=== PATIENT | male | born 1990 | race Two or more races ===

== ENCOUNTER → 2016-08-23 | Outpatient (REF) | payer OTHER | LOC: M SFHCLERA 18:34 | PROVIDERS: ATTEND Physician Assistant | DX: N50.812 Left testicular pain (principal) ==

== ENCOUNTER → 2016-08-23 | Outpatient (CLI) | payer OTHER ==
--- NOTE | 2016-08-23 17:34 | REP ---
Clinical: Left-sided scrotal/testicular pain. Technique: Real time juarez scale and color Doppler evaluation using linear high frequency transducer. Findings: The bilateral testicles are normal in contour, size, echogenicity, and vascularity without evidence for intratesticular mass lesion, infectious/inflammatory process, or torsion. Left epididymis appears mildly hyperemic suggesting early epididymitis. No hydroceles. No varicoceles. Right testicle measures 4.3 x 2.5 x 3.4 cm. Left testicle measures 4.7 x 2.5 x 3.0 cm. Impression: Early left epididymitis suggested. Normal bilateral testicles. Signed by Tristin Jacobs MD 08/23/2016 05:25 P
== END ==
LOC: M RAD 16:47
PROVIDERS: ATTEND Physician Assistant
DX: N50.812 Left testicular pain (principal)

== ENCOUNTER → 2016-09-29 | Outpatient (REF) | payer OTHER | LOC: M SFHCLERA 13:54 | PROVIDERS: ATTEND Nurse Practitioner Family | DX: J06.9 Acute upper respiratory infection, unspecified (principal) ==

== ENCOUNTER → 2017-11-17 | Outpatient (REF) | payer OTHER ==
[2017-11-17 21:13] LABS: CHLAMYDIA DNA AMPLIFICATION NEGATIVE (NEGATIVE); GC DNA AMPLIFICATION NEGATIVE (NEGATIVE)
== END ==
LOC: M SFHCLERA 16:20
DX: Z86.19 Personal history of other infectious and parasitic diseases (principal); [UNRECOGNIZED DIAGNOSIS CODE]

== ENCOUNTER 2018-03-22 07:03 | Emergency (ER) | payer OTHER | END 2018-03-22 08:27 | disposition home or self-care (01) | LOC: M ED 07:03 | DX: S93.401A Sprain of unspecified ligament of right ankle, initial encounter (principal); X50.9XXA Other and unspecified overexertion or strenuous movements or postures, initial encounter; Y92.89 Other specified places as the place of occurrence of the external cause; F33.9 Major depressive disorder, recurrent, unspecified | CPT/HCPCS: 73610 ==

== ENCOUNTER → 2019-08-16 | Outpatient (REF) | payer OTHER ==
[~2019-08-16] MED LIST: NAPR-837 PO
[2019-08-16 14:15] LABS: ALBUMIN 4.3 GM/DL (3.2-5.2); ALT/SGPT 32 U/L (12-78); BILIRUBIN,TOTAL 0.7 MG/DL (0.2-1.0); BLOOD UREA NITROGEN 16 MG/DL (7-18); CALCIUM LEVEL 9.2 MG/DL (8.5-10.1); CARBON DIOXIDE LEVEL 30 MEQ/L (21-32); CHLORIDE LEVEL 103 MEQ/L (98-107); CHOLESTEROL LEVEL 213 MG/DL (<200); CHOLESTEROL RISK RATIO 4.096 (<5); CREATININE FOR GFR 0.93 MG/DL (0.70-1.30); FREE T4 1.02 NG/DL (0.76-1.46); GLOMERULAR FILTRATION RATE > 60.0 (>60); GLUCOSE, FASTING 88 MG/DL (70-100); HDL CHOLESTEROL 52 MG/DL (>40); LDL CHOLESTEROL 145 MG/DL (<100); NON-HDL-C 161 MG/DL; POTASSIUM SERUM 4.6 MEQ/L (3.5-5.1); SODIUM LEVEL 140 MEQ/L (136-145); TOTAL PROTEIN 7.2 GM/DL (6.4-8.2); TRIGLYCERIDES LEVEL 80 MG/DL (<150)
[2019-08-16 14:27] LABS: HEPATITIS B SURFACE ANTIGEN NEGATIVE (NEGATIVE)
[2019-08-16 14:55] LABS: HEPATITIS B CORE ANTIBODY IGM NEGATIVE (NEGATIVE); HEPATITIS C VIRUS ABY INDEX < 0.0 INDEX (<0.8); HIV 1&2 SCREEN CENTAUR NEGATIVE (NEGATIVE)
[2019-08-16 14:56] LABS: HEPATITIS A ANTIBODY IGM NEGATIVE (NEGATIVE)
[2019-08-16 15:02] LABS: CHLAMYDIA DNA AMPLIFICATION NEGATIVE (NEGATIVE); GC DNA AMPLIFICATION NEGATIVE (NEGATIVE)
== END ==
LOC: M SFHCPLAZ 10:49
PROVIDERS: ATTEND Family Medicine
DX: Z00.00 Encounter for general adult medical examination without abnormal findings (principal); Z11.3 Encounter for screening for infections with a predominantly sexual mode of transmission

== ENCOUNTER → 2019-10-14 | Outpatient (CLI) | payer OTHER ==
--- NOTE | 2019-10-14 11:50 | REP ---
CHEST, PA AND LATERAL: There is no evidence of acute infiltrate. No pleural effusion is seen. The heart is normal in size. The mediastinal silhouette is unremarkable. The visualized osseous structures are intact. IMPRESSION: No acute pulmonary disease. Electronically Signed by Vamsi Godoy MD 10/14/2019 03:12 P
== END ==
LOC: M LRY 10:27
PROVIDERS: ATTEND Nurse Practitioner Family
DX: R06.2 Wheezing (principal)

== ENCOUNTER 2020-07-08 12:53 | Emergency (ER) | payer OTHER ==
[~2020-07-08] VITALS: Ht 170.2 cm; Wt 91.4 kg
[2020-07-08 12:54] VITALS: BP 138/76
[2020-07-08 13:30] LABS: BASO # 0.1 10^3/uL (0.0-0.2); BASO % 0.9 % (0.0-1.0); EOS # 0.1 10^3/uL (0.0-0.5); EOS % 1.1 % (0.0-3.0); HEMATOCRIT 44.9 % (42.0-52.0); HEMOGLOBIN 14.3 g/dl (13.5-17.5); LYMPH # 2.3 10^3/uL (1.5-5.0); LYMPH % 27.5 % (24.0-44.0); MEAN CORPUSCULAR HEMOGLOBIN 30.2 pg (27.0-33.0); MEAN CORPUSCULAR HGB CONC 31.8 g/dl (32.0-36.5); MEAN CORPUSCULAR VOLUME 94.7 fl (80.0-96.0); MONO # 0.7 10^3/uL (0.0-0.8); MONO % 8.6 % (0.0-5.0); NEUTROPHILS # 5.1 10^3/uL (1.5-8.5); NEUTROPHILS % 61.4 % (36.0-66.0); PLATELET COUNT, AUTOMATED 310 10^3/uL (150-450); RED BLOOD COUNT 4.74 10^6/uL (4.30-6.10); WHITE BLOOD COUNT 8.2 10^3/uL (4.0-10.0)
[2020-07-08 13:56] LABS: ALBUMIN 4.2 GM/DL (3.2-5.2); ALT/SGPT 22 U/L (12-78); BILIRUBIN,DIRECT 0.1 MG/DL (0.0-0.2); BILIRUBIN,TOTAL 0.6 MG/DL (0.2-1.0); BLOOD UREA NITROGEN 16 MG/DL (7-18); CALCIUM LEVEL 9.1 MG/DL (8.5-10.1); CARBON DIOXIDE LEVEL 32 MEQ/L (21-32); CHLORIDE LEVEL 103 MEQ/L (98-107); CREATININE FOR GFR 1.01 MG/DL (0.70-1.30); GLOMERULAR FILTRATION RATE > 60.0 (>60); GLUCOSE, FASTING 96 MG/DL (70-100); LIPASE 61 U/L (73-393); POTASSIUM SERUM 4.5 MEQ/L (3.5-5.1); SODIUM LEVEL 139 MEQ/L (136-145); TOTAL PROTEIN 7.1 GM/DL (6.4-8.2)
[2020-07-08] MEDS ORDERED: KETOROLAC 30 MG/ML 1ML VIAL IM ONE (14:00)
[2020-07-08] MEDS ORDERED: LIDOCAINE 5% (LIDODERM) PATCH TD ONE (14:00)
--- NOTE | 2020-07-08 14:39 | REP ---
INDICATION: low back pain COMPARISON: None. TECHNIQUE: AP, lateral, bilateral oblique, and coned-down views of the lumbar spine. FINDINGS: Alignment and lordosis maintained. Vertebral bodies are intact. Disc spaces are relatively normal/age-appropriate. No acute fracture/compression injury or subluxation. No obvious spondylolysis or spondylolisthesis.. IMPRESSION: Normal Lumbosacral Spine series. <Electronically signed by Tristin Jacobs > 07/08/20 [id number]
--- NOTE | 2020-07-08 14:40 | REP ---
INDICATION: low back pain COMPARISON: None. TECHNIQUE: Supine view of the abdomen and pelvis. FINDINGS: Bowel gas pattern is nonspecific and without obstruction or perforation. No organomegaly. No abnormal calcifications. Skeletal structures intact. IMPRESSION: Normal abdominal radiograph. <Electronically signed by Tristin Jacobs > 07/08/20 [id number]
--- NOTE | 2020-07-08 15:31 | REP ---
INDICATION: low back pain. COMPARISON: None. TECHNIQUE: Axial noncontrast images of the lumbosacral spine from mid T12 through mid sacrum with coronal and sagittal reformations. This CT examination was performed using the following dose reduction techniques: Automated exposure control, adjustment of mA and/or kv according to the patient's size, and use of iterative reconstruction technique. FINDINGS: Alignment and lordosis maintained. Vertebral bodies are intact. Posterior elements and spinous processes are intact. There is no evidence for acute fracture/compression injury or subluxation. The spinal canal is patent. The paravertebral soft tissues are normal. IMPRESSION: Normal lumbosacral spine CT. <Electronically signed by Tristin Jacobs > 07/08/20 [id number]
[2020-07-08 17:31] LABS: CHLAMYDIA DNA AMPLIFICATION NEGATIVE (NEGATIVE); GC DNA AMPLIFICATION NEGATIVE (NEGATIVE)
[2020-07-08] MEDS ORDERED: **NOTE PATIENT COMMENT** MISC XX SCH (21:00)
== END 2020-07-08 15:55 | disposition left against medical advice (07) ==
LOC: M ED 12:53
DX: M54.5 Low back pain (principal); F33.9 Major depressive disorder, recurrent, unspecified; F41.9 Anxiety disorder, unspecified; F12.20 Cannabis dependence, uncomplicated; F14.20 Cocaine dependence, uncomplicated; F15.20 Other stimulant dependence, uncomplicated; F16.20 Hallucinogen dependence, uncomplicated
CPT/HCPCS: 36415; 72110; 72131; 74018; 80048; 80076; 81001; 83690; 85025; 87661; 96372; 99281; J1885

== ENCOUNTER → 2020-11-30 | Outpatient (REF) | payer OTHER ==
[2020-11-30 17:46] LABS: APPEARANCE, URINE CLEAR (CLEAR); BACTERIA, URINE AUTO NEGATIVE (NEGATIVE); BILIRUBIN, URINE AUTO NEGATIVE (NEGATIVE); BLOOD, URINE BLOOD NEGATIVE (NEGATIVE); COLOR, URINE STRAW (YELLOW); GLUCOSE, URINE (UA) AUTO NEGATIVE (NEGATIVE); KETONE, URINE AUTO NEGATIVE (NEGATIVE); LEUKOCYTE ESTERASE, URINE AUTO NEGATIVE (NEGATIVE); MUCUS, URINE SMALL (NEGATIVE); NITRITE, URINE AUTO NEGATIVE (NEGATIVE); PROTEIN, URINE AUTO NEGATIVE (NEGATIVE); RBC, URINE AUTO 0 /HPF (0-3); SPECIFIC GRAVITY URINE AUTO 1.015 (1.002-1.035); SQUAMOUS EPITHELIAL CELL UR AU 0 /HPF (0-6); UROBILINOGEN, URINE AUTO 0.2 mg/dL (0.0-2.0); WBC, URINE AUTO 0 /HPF (0-3)
== END ==
LOC: M SMT 16:46
PROVIDERS: ATTEND Nurse Practitioner Family
DX: R30.0 Dysuria (principal)

== ENCOUNTER → 2021-02-17 | Outpatient (REF) | payer OTHER | LOC: M SMT 13:34 | PROVIDERS: ATTEND Urology | DX: Z30.2 Encounter for sterilization (principal) ==

== ENCOUNTER → 2021-04-16 | Outpatient (CLI) | payer OTHER ==
--- NOTE | 2021-04-16 13:54 | REP ---
INDICATION: PAIN IN RIGHT SHOULDER. COMPARISON: None. TECHNIQUE: AP, lateral, swimmer's and open-mouth views of the cervical spine FINDINGS: Focal moderate degenerative change at C6-7 includes endplate sclerosis, marginal spurring and disc space narrowing. Remainder of the examination is normal. IMPRESSION: Moderate focal degenerative spondylosis at C6-7. <Electronically signed by Tristin Jacobs > 04/16/21 [id number]
--- NOTE | 2021-04-16 13:55 | REP ---
INDICATION: PAIN IN RIGHT SHOULDER COMPARISON: None. TECHNIQUE: Internal rotation, external rotation, and Y view. FINDINGS: No acute fracture or dislocation. The acromioclavicular and glenohumeral joints are intact. No periarticular calcifications or degenerative changes are appreciated. Sub acromial space is normal. Surrounding soft tissues are unremarkable. IMPRESSION: Normal age-appropriate right shoulder radiographs. <Electronically signed by Tristin Jacobs > 04/16/21 [id number]
== END ==
LOC: M PLAIMG 12:01
PROVIDERS: ATTEND Family Medicine
DX: M43.02 Spondylolysis, cervical region (principal); M25.511 Pain in right shoulder

== ENCOUNTER → 2021-04-22 | Outpatient (REF) | payer OTHER ==
[2021-04-22 09:45] LABS: SEMEN APPEARANCE OPAQUE (OPAQUE); SEMEN VISCOSITY LIQUID (LIQUID); SEMEN VOLUME 3.5 ml (2.0-5.0); SEMEN pH 8.5 (7.0-8.0); WBC CONCENTRATION <=1 M/ml (<=1 M/ml)
== END ==
LOC: M SMT 09:19
PROVIDERS: ATTEND Urology
DX: Z30.2 Encounter for sterilization (principal); Z98.52 Vasectomy status

== ENCOUNTER → 2021-05-24 | Outpatient (REF) | payer OTHER | LOC: M LAB REF 14:45 | PROVIDERS: ATTEND Physician Assistant | DX: L02.91 Cutaneous abscess, unspecified (principal); B95.8 Unspecified staphylococcus as the cause of diseases classified elsewhere ==

== ENCOUNTER 2021-06-07 11:45 | Outpatient (RCR) | payer OTHER ==
[2021-06-09] MEDS ORDERED: GABA-283 (14:49)
[2021-06-09] MEDS ORDERED: METH-1164 (14:49)
[2021-06-09] MEDS ORDERED: BUPR300T92 (14:49)
== END 2021-06-08 ==
LOC: M PT 11:45
PROVIDERS: ATTEND Family Medicine
DX: M25.511 Pain in right shoulder (principal)

== ENCOUNTER 2021-06-09 14:29 | Emergency (ER) | payer OTHER ==
[~2021-06-09] VITALS: Ht 170.2 cm; Wt 97.9 kg
[2021-06-09] MEDS ORDERED: METH-1164 (14:49)
[2021-06-09] MEDS ORDERED: BUPR300T92 (14:49)
[2021-06-09] MEDS ORDERED: GABA-283 (14:49)
[2021-06-09] MEDS ORDERED: KETOROLAC 30 MG/ML 1ML VIAL IV ONE (18:20)
[2021-06-09] MEDS ORDERED: ONDANSETRON 4MG/2ML VIAL IV ONE (18:20)
[2021-06-09] MEDS ORDERED: NS 1,000 ML IV ONE (18:20)
[2021-06-09 18:46] LABS: BASO # 0.1 10^3/uL (0.0-0.2); BASO % 0.6 % (0.0-1.0); EOS # 0.1 10^3/uL (0.0-0.5); EOS % 0.8 % (0.0-3.0); HEMATOCRIT 43.1 % (42.0-52.0); HEMOGLOBIN 14.4 g/dl (13.5-17.5); LYMPH # 2.8 10^3/uL (1.5-5.0); MEAN CORPUSCULAR HEMOGLOBIN 30.9 pg (27.0-33.0); MEAN CORPUSCULAR HGB CONC 33.4 g/dl (32.0-36.5); MEAN CORPUSCULAR VOLUME 92.5 fl (80.0-96.0); MONO # 0.6 10^3/uL (0.0-0.8); NEUTROPHILS # 5.2 10^3/uL (1.5-8.5); NEUTROPHILS % 59.3 % (36.0-66.0); PLATELET COUNT, AUTOMATED 323 10^3/uL (150-450); RED BLOOD COUNT 4.66 10^6/uL (4.30-6.10); WHITE BLOOD COUNT 8.8 10^3/uL (4.0-10.0)
[2021-06-09 18:57] LABS: PARTIAL THROMBOPLASTIN TIME 31.2 SECONDS (25.9-37.0); PROTHROMBIN TIME 13.6 SECONDS (12.7-14.5)
[2021-06-09 19:11] LABS: D-DIMER QUANT < 270 ng/ml (<500)
[2021-06-09 19:18] LABS: CK-MB VALUE MASS 1.4 NG/ML (<3.6); MB/CK RELATIVE INDEX 0.19 (< OR =4)
[2021-06-09 19:38] LABS: BLOOD UREA NITROGEN 18 MG/DL (7-18); CALCIUM LEVEL 9.3 MG/DL (8.5-10.1); CARBON DIOXIDE LEVEL 29 MEQ/L (21-32); CHLORIDE LEVEL 106 MEQ/L (98-107); FREE T4 1.12 NG/DL (0.76-1.46); GLOMERULAR FILTRATION RATE > 60.0 (>60); GLUCOSE, FASTING 91 MG/DL (70-100); MAGNESIUM LEVEL 2.3 MG/DL (1.8-2.4); POTASSIUM SERUM 4.2 MEQ/L (3.5-5.1); SODIUM LEVEL 142 MEQ/L (136-145)
[2021-06-09 21:47] VITALS: BP 150/80
== END 2021-06-09 21:49 | disposition home or self-care (01) ==
LOC: M ED 14:29
DX: E86.0 Dehydration (principal); F33.9 Major depressive disorder, recurrent, unspecified; F41.9 Anxiety disorder, unspecified; Z79.899 Other long term (current) drug therapy; F12.20 Cannabis dependence, uncomplicated
CPT/HCPCS: 70450; 72125; 80048; 82550; 82553; 83735; 84439; 84443; 85025; 85379; 85610; 85730; 93005; 96361; 96374; 96375; 99284; J1885; J2405

== ENCOUNTER 2021-06-30 15:15 | Outpatient (RCR) | payer OTHER ==
[~2021-06-30 15:15] MED LIST changes: +BUPR300T92; +GABA-283; +METH-1164
== END 2021-07-09 ==
LOC: M PT 15:15
PROVIDERS: ATTEND Family Medicine
DX: M25.511 Pain in right shoulder (principal)

== ENCOUNTER → 2022-03-09 | Outpatient (CLI) | payer OTHER | LOC: M PLAIMG 08:18 | PROVIDERS: ATTEND Student in an Organized Health Care Education/Training Program | DX: R06.89 Other abnormalities of breathing (principal); M25.531 Pain in right wrist; G56.22 Lesion of ulnar nerve, left upper limb; M54.2 Cervicalgia; M89.8X8 Other specified disorders of bone, other site ==

== ENCOUNTER 2022-05-04 12:10 | Outpatient (RCR) | payer OTHER | END 2022-05-09 | LOC: M PT 12:10 | PROVIDERS: ATTEND Student in an Organized Health Care Education/Training Program | DX: M47.812 Spondylosis without myelopathy or radiculopathy, cervical region (principal) ==

== ENCOUNTER 2022-05-24 13:15 | Outpatient (RCR) | payer OTHER | END 2022-06-08 | LOC: M PT 13:15 | PROVIDERS: ATTEND Student in an Organized Health Care Education/Training Program | DX: M47.812 Spondylosis without myelopathy or radiculopathy, cervical region (principal) ==

== ENCOUNTER → 2022-07-27 | Outpatient (CLI) | payer OTHER ==
[~2022-07-27] MED LIST changes: +GABA-282; +NAPR375T4 PO
== END ==
LOC: M LABSMTC 11:20
PROVIDERS: ATTEND Anesthesiology
DX: Z01.812 Encounter for preprocedural laboratory examination (principal); Z20.822 Contact with and (suspected) exposure to COVID-19

== ENCOUNTER 2022-08-01 10:21 | Day surgery (SDC) | payer OTHER ==
[~2022-08-01] VITALS: Ht 170.2 cm; Wt 102.7 kg
[2022-08-01] MEDS ORDERED: oxyCODONE 5MG TAB PO ONE (10:50)
[2022-08-01] MEDS ORDERED: ceFAZolin SOD 2 GM in IV 1 EA IV ONE (10:50)
[2022-08-01] MEDS ORDERED: LR 1,000 ML IV SCH ×2 (11:10→16:10)
[2022-08-01] MEDS ORDERED: BUPIVACAINE/EPIN 0.5% 30ML VIAL As Ordered ONE (14:12)
[2022-08-01] MEDS ORDERED: ACETAMINOPHEN 1000MG 100ML IV BAG As Ordered ONE (14:58)
[2022-08-01] MEDS ORDERED: ONDANSETRON 4MG 2ML VIAL As Ordered ONE (15:07)
[2022-08-01] MEDS ORDERED: LIDOCAINE 2% 100MG/5ML SDV (FOR ANES.) As Ordered ONE (15:07)
[2022-08-01] MEDS ORDERED: KETOROLAC 60MG 2ML VIAL As Ordered ONE (15:07)
[2022-08-01] MEDS ORDERED: MIDAZOLAM INJ 2MG/2ML VIAL As Ordered ONE (15:07)
[2022-08-01] MEDS ORDERED: fentaNYL 250 MCG/5 ML INJECTION As Ordered ONE (15:07)
[2022-08-01] MEDS ORDERED: propofoL 200 MG/20 ML VIAL As Ordered ONE (15:07)
[2022-08-01] MEDS ORDERED: METOCLOPRAMIDE INJ 10MG/2ML VIAL IV PRN ×2 (16:10→16:45)
[2022-08-01] MEDS ORDERED: fentaNYL 100 MCG/2 ML INJECTION IV PRN (16:10)
[2022-08-01] MEDS ORDERED: ONDANSETRON 4MG 2ML VIAL IV PRN (16:10)
[2022-08-01] MEDS ORDERED: oxyCODONE 5MG TAB PO PRN (16:10)
[2022-08-01] MEDS ORDERED: HYDROMORPHONE HCL 0.5 MG/ 0.5 ML SYRINGE IV PRN (16:10)
[2022-08-01] MEDS ORDERED: PERC5TAB12 PO (16:18)
[2022-08-01 17:12] VITALS: BP 135/93
== END 2022-08-01 17:32 | disposition home or self-care (01) ==
LOC: M SDC 10:21
PROVIDERS: ATTEND Orthopaedic Surgery
DX: G56.03 Carpal tunnel syndrome, bilateral upper limbs (principal); K21.9 Gastro-esophageal reflux disease without esophagitis; F41.9 Anxiety disorder, unspecified; F32.A Depression, unspecified; M54.9 Dorsalgia, unspecified; F17.210 Nicotine dependence, cigarettes, uncomplicated; Z86.14 Personal history of Methicillin resistant Staphylococcus aureus infection; Z79.899 Other long term (current) drug therapy
CPT/HCPCS: 29848; J1100; J2405

== ENCOUNTER 2022-08-22 08:41 | Emergency (ER) | payer OTHER ==
[~2022-08-22] VITALS: Ht 170.2 cm; Wt 102.7 kg
[~2022-08-22 08:41] MED LIST changes: -GABA-282; +GABA-282 PO; +PERC5TAB12 PO
[2022-08-22 08:42] VITALS: BP 137/83
[2022-08-22] MEDS ORDERED: NAPR-885 PO (08:59)
[2022-08-22] MEDS ORDERED: MORPHINE 4 MG/ML 1ML VIAL IV ONE ×2 (12:30→16:05)
[2022-08-22] MEDS ORDERED: ONDANSETRON 4MG 2ML VIAL IV ONE (12:30)
[2022-08-22] MEDS ORDERED: methylPREDNISolone 125MG 2ML VIAL IV ONE (12:30)
[2022-08-22] MEDS ORDERED: diazePAM 10MG/2ML SYRINGE IV ONE (14:05)
[2022-08-22] MEDS ORDERED: LIDOCAINE 5% (LIDODERM) PATCH TD ONE (14:05)
[2022-08-22] MEDS ORDERED: MEDR4PAK PO (16:15)
[2022-08-22] MEDS ORDERED: ASPE4PAD TOP (16:15)
[2022-08-22] MEDS ORDERED: HYDR-3713 PO (16:15)
[2022-08-22] MEDS ORDERED: METH-1165 PO (16:15)
== END 2022-08-22 16:36 | disposition home or self-care (01) ==
LOC: M ED 08:41
DX: M25.511 Pain in right shoulder (principal); M54.6 Pain in thoracic spine; M43.02 Spondylolysis, cervical region; M25.78 Osteophyte, vertebrae; Z79.899 Other long term (current) drug therapy
CPT/HCPCS: 73030; 93971; 96374; 96375; 96376; 99284; J2270; J2405; J2930; J3360

== ENCOUNTER → 2022-08-24 | Outpatient (CLI) | payer OTHER ==
[~2022-08-24] MED LIST changes: +ASPE4PAD TOP; +GABA-282; -GABA-282 PO; +HYDR-3713 PO; +MEDR4PAK PO; +METH-1165 PO; +NAPR-885
== END ==
LOC: M SOG 08:04
PROVIDERS: ATTEND Orthopaedic Surgery
DX: M25.521 Pain in right elbow (principal); M25.522 Pain in left elbow; Z53.8 Procedure and treatment not carried out for other reasons

== ENCOUNTER 2022-08-26 19:18 | Inpatient (IN) | payer OTHER ==
[~2022-08-26] VITALS: Ht 170.2 cm; Wt 102.5 kg
[~2022-08-26 19:18] MED LIST changes: -GABA-282; +GABA-282 PO; -NAPR-885; +NAPR-885 PO
[2022-08-26] MEDS ORDERED: TRAM50TA2 PO (19:30)
[2022-08-26] MEDS ORDERED: CEPH500C PO (19:32)
[2022-08-26] MEDS ORDERED: IBUP200C90 PO (19:32)
[2022-08-26] MEDS ORDERED: diphenhydrAMINE 50MG/ML VIAL IV STA (21:02)
[2022-08-26] MEDS ORDERED: MORPHINE 4 MG/ML 1ML VIAL IV ONE (21:05)
[2022-08-26] MEDS ORDERED: methylPREDNISolone 125MG 2ML VIAL IV ONE (21:05)
[2022-08-26] MEDS ORDERED: FAMOTIDINE 20MG/2ML VIAL IVP ONE (21:05)
[2022-08-26 21:48] LABS: BASO # 0.1 10^3/uL (0.0-0.2); BASO % 0.2 % (0.0-1.0); EOS # 0.1 10^3/uL (0.0-0.5); EOS % 0.4 % (0.0-3.0); HEMATOCRIT 40.5 % (42.0-52.0); HEMOGLOBIN 13.4 g/dl (13.5-17.5); LYMPH # 1.9 10^3/uL (1.5-5.0); LYMPH % 7.6 % (24.0-44.0); MEAN CORPUSCULAR HEMOGLOBIN 30.9 pg (27.0-33.0); MEAN CORPUSCULAR HGB CONC 33.1 g/dl (32.0-36.5); MEAN CORPUSCULAR VOLUME 93.3 fl (80.0-96.0); MONO % 8.9 % (2.0-8.0); NEUTROPHILS # 19.8 10^3/uL (1.5-8.5); NEUTROPHILS % 80.9 % (36.0-66.0); PLATELET COUNT, AUTOMATED 279 10^3/uL (150-450); RED BLOOD COUNT 4.34 10^6/uL (4.30-6.10); WHITE BLOOD COUNT 24.5 10^3/uL (4.0-10.0)
[2022-08-26 22:10] LABS: ERYTHROCYTE SEDIMENTATION RATE 45 mm/hr (0-15)
[2022-08-26 22:22] LABS: MONO # 2.2 10^3/uL (0.0-0.8)
[2022-08-27] VITALS (8 sets, daily range): BP systolic 116–165; BP diastolic 68–103
[2022-08-27] MEDS ORDERED: NS 1,000 ML IV ONE (00:35)
[2022-08-27] MEDS ORDERED: METH-1165 PO (00:54)
[2022-08-27] MEDS ORDERED: HOME MED LIST COMPLETE! XX SCH (00:55)
[2022-08-27] MEDS ORDERED: BUPR-71 PO (00:55)
[2022-08-27] MEDS ORDERED: MORPHINE 4 MG/ML 1ML VIAL IV ONE (01:20)
[2022-08-27] MEDS ORDERED: NORCO, ANEXSIA 5/325MG TABLET (HYDROcodone/ACETAMINOPHEN) PO ONE (01:20)
[2022-08-27 01:35] LABS: RSV AMPLIFICATION NEGATIVE (NEGATIVE)
[2022-08-27] MEDS ORDERED: VANCOMYCIN HCL 1,000 MG, VIAL MATE ADAPTER 1 EACH in NS 250 ML IV SCH (02:00)
[2022-08-27] MEDS ORDERED: NS 1,000 ML IV SCH (02:00)
[2022-08-27] MEDS: cefTRIAXone SOD 2 GM in D5W MINI-BAG PLUS 50 ML IV SCH (03:04)
[2022-08-27] MEDS: ONDANSETRON 4MG 2ML VIAL IV PRN ×2 (03:04→20:38)
[2022-08-27] MEDS ORDERED: VANCOMYCIN HCL 1,000 MG, VIAL MATE ADAPTER 1 EACH in NS 250 ML IV ONE ×2 (04:00→05:00)
[2022-08-27] MEDS: MORPHINE 4 MG/ML 1ML VIAL IV PRN ×2 (04:32→17:51)
[2022-08-27 06:40] LABS: HEMATOCRIT 39.1 % (42.0-52.0); HEMOGLOBIN 12.9 g/dl (13.5-17.5); MEAN CORPUSCULAR HEMOGLOBIN 31.1 pg (27.0-33.0); MEAN CORPUSCULAR VOLUME 94.2 fl (80.0-96.0); PLATELET COUNT, AUTOMATED 272 10^3/uL (150-450); RED BLOOD COUNT 4.15 10^6/uL (4.30-6.10)
[2022-08-27 06:55] LABS: INR 1.01; PARTIAL THROMBOPLASTIN TIME 28.8 SECONDS (24.8-34.2); PROTHROMBIN TIME 13.5 SECONDS (12.5-14.5)
[2022-08-27 07:17] LABS: BLOOD UREA NITROGEN 11 MG/DL (9-23); CALCIUM LEVEL 8.2 MG/DL (8.5-10.1); CARBON DIOXIDE LEVEL 27 MMOL/L (20-31); CHLORIDE LEVEL 105 MMOL/L (98-107); CREATININE FOR GFR 0.75 MG/DL (0.70-1.30); GLOMERULAR FILTRATION RATE > 60.0 (>60); GLUCOSE, FASTING 193 MG/DL (60-100); MAGNESIUM LEVEL 2.2 MG/DL (1.8-2.4); POTASSIUM SERUM 4.8 MMOL/L (3.5-5.1); SODIUM LEVEL 140 MMOL/L (136-145)
[2022-08-27] MEDS ORDERED: MIDAZOLAM INJ 2MG/2ML VIAL As Ordered ONE (07:59)
[2022-08-27] MEDS ORDERED: propofoL 200 MG/20 ML VIAL As Ordered ONE (07:59)
[2022-08-27] MEDS ORDERED: LIDOCAINE 2% 100MG/5ML SDV (FOR ANES.) As Ordered ONE (07:59)
[2022-08-27] MEDS ORDERED: fentaNYL 100 MCG/2 ML INJECTION As Ordered ONE (08:00)
[2022-08-27] MEDS ORDERED: ONDANSETRON 4MG 2ML VIAL As Ordered ONE (08:23)
[2022-08-27] MEDS: LIDOCAINE 5% (LIDODERM) PATCH TD SCH (09:00)
[2022-08-27] MEDS ORDERED: ceFAZolin 2 GM/D5W 50 ML IV BAG As Ordered ONE (09:06)
[2022-08-27] MEDS ORDERED: oxyCODONE 5MG TAB PO PRN (09:10)
[2022-08-27] MEDS ORDERED: ONDANSETRON 4MG 2ML VIAL IV PRN (09:10)
[2022-08-27] MEDS ORDERED: fentaNYL 100 MCG/2 ML INJECTION IV PRN (09:10)
[2022-08-27] MEDS ORDERED: LR 1,000 ML IV SCH (09:10)
[2022-08-27] MEDS ORDERED: ACETAMINOPHEN 1000MG 100ML IV BAG As Ordered ONE (09:20)
[2022-08-27] MEDS: MORPHINE 2 MG/ML 1ML VIAL IV PRN ×2 (10:05→10:11)
[2022-08-27] MEDS: VANCOMYCIN HCL 750 MG, VIAL MATE ADAPTER 1 EACH in D5W 250 ML IV SCH ×2 (13:46→16:05)
[2022-08-27] MEDS ORDERED: RIVAROXABAN 10MG TAB (XARELTO) PO SCH (18:00)
[2022-08-27] MEDS: RAMELTEON 8 MG TAB (ROZEREM) PO SCH (20:38)
[2022-08-27] MEDS: KETOROLAC 30 MG/ML 1ML VIAL IV PRN (21:35)
[2022-08-28] MEDS: VANCOMYCIN HCL 750 MG, VIAL MATE ADAPTER 1 EACH in D5W 250 ML IV SCH ×4 (00:56→15:30)
[2022-08-28] MEDS: MORPHINE 4 MG/ML 1ML VIAL IV PRN ×2 (01:00→07:35)
[2022-08-28 01:15] VITALS: BP 130/73
[2022-08-28] MEDS ORDERED: PERCOCET 5MG/325MG TAB PO ONE (02:20)
[2022-08-28] MEDS: cefTRIAXone SOD 2 GM in D5W MINI-BAG PLUS 50 ML IV SCH (03:09)
[2022-08-28] MEDS: KETOROLAC 30 MG/ML 1ML VIAL IV PRN ×3 (04:03→18:08)
[2022-08-28 06:00] VITALS: BP_SYST 129; BP_SYST 136; BP_DIAS 73; BP_DIAS 77
[2022-08-28 06:19] LABS: HEMATOCRIT 36.7 % (42.0-52.0); HEMOGLOBIN 11.8 g/dl (13.5-17.5); MEAN CORPUSCULAR HEMOGLOBIN 30.8 pg (27.0-33.0); MEAN CORPUSCULAR HGB CONC 32.2 g/dl (32.0-36.5); MEAN CORPUSCULAR VOLUME 95.8 fl (80.0-96.0); PLATELET COUNT, AUTOMATED 285 10^3/uL (150-450); RED BLOOD COUNT 3.83 10^6/uL (4.30-6.10); WHITE BLOOD COUNT 23.9 10^3/uL (4.0-10.0)
[2022-08-28 06:51] LABS: BLOOD UREA NITROGEN 12 MG/DL (9-23); CALCIUM LEVEL 7.6 MG/DL (8.5-10.1); CARBON DIOXIDE LEVEL 30 MMOL/L (20-31); CHLORIDE LEVEL 104 MMOL/L (98-107); CREATININE FOR GFR 0.83 MG/DL (0.70-1.30); GLOMERULAR FILTRATION RATE > 60.0 (>60); GLUCOSE, FASTING 114 MG/DL (60-100); POTASSIUM SERUM 4.2 MMOL/L (3.5-5.1); SODIUM LEVEL 138 MMOL/L (136-145)
[2022-08-28] MEDS: buPROPion **SR TABLET** (ZYBAN) 150MG PO SCH (07:34)
[2022-08-28] MEDS: ONDANSETRON 4MG 2ML VIAL IV PRN (07:41)
[2022-08-28] MEDS: LIDOCAINE 5% (LIDODERM) PATCH TD SCH (08:31)
[2022-08-28] MEDS: DICLOFENAC EPOLAMINE 1.3% PATCH TOP SCH ×2 (09:00→21:12)
[2022-08-28] MEDS ORDERED: KETOROLAC 30 MG/ML 1ML VIAL IV PRN ×2 (09:05→14:00)
[2022-08-28] MEDS: MIRALAX *UNIT DOSE* 17GM PACKET PO SCH ×2 (10:18→21:11)
[2022-08-28] MEDS: SENNA 8.6 MG TAB (SENOKOT) PO SCH (10:18)
[2022-08-28] MEDS: HYDROMORPHONE HCL 0.5 MG/ 0.5 ML SYRINGE IV PRN ×3 (10:18→21:10)
[2022-08-28] MEDS: METAMUCIL (PSYLLIUM) PACKET PO SCH ×2 (10:18→21:11)
[2022-08-28] MEDS: ACETAMINOPHEN 500 MG TAB PO SCH ×2 (12:04→18:08)
[2022-08-28] MEDS ORDERED: PROHANCE 279.3MG/ML 5ML VIAL As Ordered ONE (13:48)
[2022-08-28] MEDS ORDERED: PROHANCE 279.3MG/ML 15ML VIAL As Ordered ONE (13:48)
[2022-08-28] MEDS ORDERED: VANCOMYCIN HCL 1,000 MG, VIAL MATE ADAPTER 1 EACH in D5W 250 ML IV SCH ×2 (21:00→22:00)
[2022-08-28] MEDS: RAMELTEON 8 MG TAB (ROZEREM) PO SCH (21:12)
[2022-08-28 22:00] VITALS: BP 116/58
[2022-08-29] VITALS (7 sets, daily range): BP systolic 115–174; BP diastolic 73–95
[2022-08-29] MEDS: ACETAMINOPHEN 500 MG TAB PO SCH ×4 (00:12→20:21)
[2022-08-29] MEDS: KETOROLAC 30 MG/ML 1ML VIAL IV PRN ×4 (00:13→21:58)
[2022-08-29] MEDS: traZODone 50 MG TAB PO PRN (02:12)
[2022-08-29] MEDS: HYDROMORPHONE HCL 0.5 MG/ 0.5 ML SYRINGE IV PRN ×4 (02:17→18:43)
[2022-08-29 08:07] LABS: HEMATOCRIT 36.4 % (42.0-52.0); HEMOGLOBIN 11.7 g/dl (13.5-17.5); MEAN CORPUSCULAR HEMOGLOBIN 30.5 pg (27.0-33.0); MEAN CORPUSCULAR HGB CONC 32.1 g/dl (32.0-36.5); PLATELET COUNT, AUTOMATED 298 10^3/uL (150-450); RED BLOOD COUNT 3.83 10^6/uL (4.30-6.10); WHITE BLOOD COUNT 23.2 10^3/uL (4.0-10.0)
[2022-08-29 08:33] LABS: BLOOD UREA NITROGEN 14 MG/DL (9-23); CALCIUM LEVEL 8.5 MG/DL (8.5-10.1); CARBON DIOXIDE LEVEL 32 MMOL/L (20-31); CHLORIDE LEVEL 101 MMOL/L (98-107); CREATININE FOR GFR 0.85 MG/DL (0.70-1.30); GLOMERULAR FILTRATION RATE > 60.0 (>60); GLUCOSE, FASTING 102 MG/DL (60-100); POTASSIUM SERUM 4.1 MMOL/L (3.5-5.1); SODIUM LEVEL 138 MMOL/L (136-145)
[2022-08-29] MEDS: MIRALAX *UNIT DOSE* 17GM PACKET PO SCH ×2 (09:00→21:00)
[2022-08-29] MEDS ORDERED: VANCOMYCIN HCL 750 MG, VIAL MATE ADAPTER 1 EACH in D5W 250 ML IV SCH (09:00)
[2022-08-29] MEDS: METAMUCIL (PSYLLIUM) PACKET PO SCH ×2 (09:00→21:00)
[2022-08-29] MEDS: SENNA 8.6 MG TAB (SENOKOT) PO SCH (09:00)
[2022-08-29] MEDS: LIDOCAINE 5% (LIDODERM) PATCH TD SCH (09:00)
[2022-08-29] MEDS: buPROPion **SR TABLET** (ZYBAN) 150MG PO SCH (09:00)
[2022-08-29] MEDS ORDERED: VANCOMYCIN HCL 500 MG in D5W MINI-BAG PLUS 100 ML IV SCH (10:00)
[2022-08-29] MEDS: DICLOFENAC EPOLAMINE 1.3% PATCH TOP SCH ×2 (10:08→21:00)
[2022-08-29] MEDS: ceFAZolin SOD 2 GM in IV 1 EA IV SCH ×2 (11:42→20:20)
[2022-08-29] MEDS ORDERED: LR 1,000 ML IV SCH (16:30)
[2022-08-29] MEDS ORDERED: fentaNYL 100 MCG/2 ML INJECTION IV PRN (16:30)
[2022-08-29] MEDS ORDERED: ONDANSETRON 4MG 2ML VIAL IV PRN (16:30)
[2022-08-29] MEDS ORDERED: ceFAZolin 1GM VIAL As Ordered ONE (16:35)
[2022-08-29] MEDS ORDERED: fentaNYL 250 MCG/5 ML INJECTION As Ordered ONE (16:40)
[2022-08-29] MEDS ORDERED: LIDOCAINE 2% 100MG/5ML SDV (FOR ANES.) As Ordered ONE (16:40)
[2022-08-29] MEDS ORDERED: propofoL 200 MG/20 ML VIAL As Ordered ONE (16:40)
[2022-08-29] MEDS ORDERED: ONDANSETRON 4MG 2ML VIAL As Ordered ONE (16:40)
[2022-08-29] MEDS ORDERED: KETOROLAC 60MG 2ML VIAL As Ordered ONE ×2 (16:40→17:44)
[2022-08-29] MEDS ORDERED: MIDAZOLAM INJ 2MG/2ML VIAL As Ordered ONE (16:41)
[2022-08-29] MEDS ORDERED: ACETAMINOPHEN 1000MG 100ML IV BAG As Ordered ONE (17:45)
[2022-08-29] MEDS: oxyCODONE 5MG TAB PO PRN ×2 (18:29→19:24)
[2022-08-29] MEDS: MORPHINE 2 MG/ML 1ML VIAL IV PRN ×2 (18:29→18:40)
[2022-08-29] MEDS: ONDANSETRON 4MG 2ML VIAL IV PRN (18:30)
[2022-08-29] MEDS: RAMELTEON 8 MG TAB (ROZEREM) PO SCH (21:00)
[2022-08-30] VITALS: BP 183/81
[2022-08-30] MEDS: traZODone 50 MG TAB PO PRN (00:48)
[2022-08-30] MEDS: HYDROMORPHONE HCL 0.5 MG/ 0.5 ML SYRINGE IV PRN ×2 (00:48→17:34)
[2022-08-30 02:00] VITALS: BP 187/97
[2022-08-30] MEDS ORDERED: amLODIPine 5 MG TAB PO ONE (03:00)
[2022-08-30] MEDS: ceFAZolin SOD 2 GM in IV 1 EA IV SCH ×3 (03:06→20:21)
[2022-08-30 06:00] VITALS: BP 145/76
[2022-08-30] MEDS: ACETAMINOPHEN 500 MG TAB PO SCH ×4 (06:10→17:33)
[2022-08-30 06:15] LABS: BLOOD UREA NITROGEN 16 MG/DL (9-23); CALCIUM LEVEL 8.3 MG/DL (8.5-10.1); CARBON DIOXIDE LEVEL 31 MMOL/L (20-31); CHLORIDE LEVEL 98 MMOL/L (98-107); CREATININE FOR GFR 0.82 MG/DL (0.70-1.30); GLOMERULAR FILTRATION RATE > 60.0 (>60); GLUCOSE, FASTING 165 MG/DL (60-100); POTASSIUM SERUM 4.8 MMOL/L (3.5-5.1); SODIUM LEVEL 136 MMOL/L (136-145)
[2022-08-30 06:16] LABS: HEMATOCRIT 32.9 % (42.0-52.0); HEMOGLOBIN 10.6 g/dl (13.5-17.5); MEAN CORPUSCULAR HEMOGLOBIN 30.5 pg (27.0-33.0); MEAN CORPUSCULAR HGB CONC 32.2 g/dl (32.0-36.5); MEAN CORPUSCULAR VOLUME 94.8 fl (80.0-96.0); PLATELET COUNT, AUTOMATED 354 10^3/uL (150-450); RED BLOOD COUNT 3.47 10^6/uL (4.30-6.10); WHITE BLOOD COUNT 26.3 10^3/uL (4.0-10.0)
[2022-08-30 07:25] LABS: ATYPICAL LYMPH 1 % (0-5); LYMPHOCYTES 14 % (16-44); MONOCYTES 6 % (0-5); NEUTROPHILS 79 % (28-66)
[2022-08-30 07:26] LABS: ANISOCYTOSIS 2+; MICROCYTOSIS 2+; PLATELET ESTIMATE INCREASED (NORMAL)
[2022-08-30 07:27] LABS: POLYCHROMASIA 1+
[2022-08-30] MEDS: LIDOCAINE 5% (LIDODERM) PATCH TD SCH (09:00)
[2022-08-30] MEDS: DICLOFENAC EPOLAMINE 1.3% PATCH TOP SCH ×3 (09:00→21:00)
[2022-08-30] MEDS: MIRALAX *UNIT DOSE* 17GM PACKET PO SCH ×2 (10:59→20:21)
[2022-08-30] MEDS: METAMUCIL (PSYLLIUM) PACKET PO SCH ×2 (10:59→20:20)
[2022-08-30] MEDS: buPROPion **SR TABLET** (ZYBAN) 150MG PO SCH (11:00)
[2022-08-30] MEDS: SENNA 8.6 MG TAB (SENOKOT) PO SCH (11:00)
[2022-08-30] MEDS: amLODIPine 5 MG TAB PO SCH (11:02)
[2022-08-30] MEDS: KETOROLAC 30 MG/ML 1ML VIAL IV PRN ×2 (12:21→21:18)
[2022-08-30] MEDS: RAMELTEON 8 MG TAB (ROZEREM) PO SCH (21:00)
[2022-08-30 21:58] VITALS: BP 156/78
[2022-08-31] MEDS: ACETAMINOPHEN 500 MG TAB PO SCH ×3 (00:17→11:02)
[2022-08-31] MEDS: traZODone 50 MG TAB PO PRN (00:17)
[2022-08-31] MEDS: ONDANSETRON 4MG 2ML VIAL IV PRN (00:17)
[2022-08-31] MEDS: ceFAZolin SOD 2 GM in IV 1 EA IV SCH ×2 (05:19→11:03)
[2022-08-31] MEDS: KETOROLAC 30 MG/ML 1ML VIAL IV PRN ×2 (05:29→13:20)
[2022-08-31 05:42] VITALS: BP 131/71
[2022-08-31 06:43] LABS: HEMATOCRIT 29.3 % (42.0-52.0); HEMOGLOBIN 9.6 g/dl (13.5-17.5); MEAN CORPUSCULAR HGB CONC 32.8 g/dl (32.0-36.5); MEAN CORPUSCULAR VOLUME 94.5 fl (80.0-96.0); PLATELET COUNT, AUTOMATED 358 10^3/uL (150-450); WHITE BLOOD COUNT 26.4 10^3/uL (4.0-10.0)
[2022-08-31 07:11] LABS: BLOOD UREA NITROGEN 15 MG/DL (9-23); CALCIUM LEVEL 8.3 MG/DL (8.5-10.1); CARBON DIOXIDE LEVEL 30 MMOL/L (20-31); CHLORIDE LEVEL 104 MMOL/L (98-107); CREATININE FOR GFR 0.85 MG/DL (0.70-1.30); GLOMERULAR FILTRATION RATE > 60.0 (>60); GLUCOSE, FASTING 91 MG/DL (60-100); POTASSIUM SERUM 4.2 MMOL/L (3.5-5.1); SODIUM LEVEL 138 MMOL/L (136-145)
[2022-08-31 07:21] LABS: ATYPICAL LYMPH 3 % (0-5); LYMPHOCYTES 23 % (16-44); METAMYELOCYTES 3 % (0-0); MONOCYTES 5 % (0-5); MYELOCYTES 2 % (0-0); NEUTROPHILS 52 % (28-66)
[2022-08-31 07:22] LABS: PLATELET ESTIMATE NORMAL (NORMAL)
[2022-08-31 07:23] LABS: ANISOCYTOSIS 2+; MICROCYTOSIS 2+
[2022-08-31] MEDS: MIRALAX *UNIT DOSE* 17GM PACKET PO SCH (09:00)
[2022-08-31] MEDS: LIDOCAINE 5% (LIDODERM) PATCH TD SCH (09:00)
[2022-08-31] MEDS ORDERED: SENOKOT S TAB PO SCH (09:00)
[2022-08-31] MEDS: DICLOFENAC EPOLAMINE 1.3% PATCH TOP SCH (09:00)
[2022-08-31] MEDS: METAMUCIL (PSYLLIUM) PACKET PO SCH (09:00)
[2022-08-31] MEDS: buPROPion **SR TABLET** (ZYBAN) 150MG PO SCH (09:00)
[2022-08-31] MEDS: SENNA 8.6 MG TAB (SENOKOT) PO SCH (09:00)
[2022-08-31 09:02] VITALS: BP 123/71
[2022-08-31] MEDS: amLODIPine 5 MG TAB PO SCH (09:02)
[2022-08-31] MEDS ORDERED: SIMETHICONE 80MG CHEW TAB PO PRN (09:30)
[2022-08-31] MEDS ORDERED: SIMETHICONE 80MG CHEW TAB PO ONE (09:30)
[2022-08-31] MEDS ORDERED: BISACODYL 10MG SUPP PR ONE (10:40)
[2022-08-31] MEDS ORDERED: MOM 30ML SUSPENSION UDC PO ONE (10:40)
[2022-08-31] MEDS ORDERED: LIDOCAINE 1% MDV 20ML VIAL As Ordered ONE (13:23)
[2022-08-31 14:00] VITALS: BP 122/78
[2022-08-31] MEDS ORDERED: SENN-52 PO (14:27)
[2022-08-31] MEDS ORDERED: AMOX875T2 PO (14:27)
[2022-08-31] MEDS ORDERED: MIRA1POW3 PO (14:27)
[2022-08-31] MEDS ORDERED: AMLO1TAB24 PO (14:27)
[2022-08-31] MEDS ORDERED: OXYC1TAB23 PO (14:47)
[2022-08-31] MEDS ORDERED: SODIUM CHLORIDE 0.9% INJ 10 ML SYR IV PRN (16:05)
[2022-08-31] MEDS ORDERED: DAPTOmycin 600 MG in NS 50 ML IV SCH (17:00)
[2022-08-31] MEDS ORDERED: SODIUM CHLORIDE 0.9% INJ 10 ML SYR IV SCH (18:00)
[2022-09-01] MEDS ORDERED: MOM 30ML SUSPENSION UDC PO PRN (09:00)
== END 2022-08-31 17:55 | disposition home health service (06) | DRG 315 ==
LOC: M ED 19:18 → M ED INP 08-27 01:59 → M MS5PR 08-27 03:58
PROVIDERS: ADMIT Family Medicine; ATTEND Internal Medicine
PROC: 0R9 Upper Joints, Drainage (ICD-10-PCS; 2022-08-27)
PROC: B246ZZZ Ultrasonography of Right and Left Heart (ICD-10-PCS; 2022-08-29)
PROC: 0R9J0ZZ Drainage of Right Shoulder Joint, Open Approach (ICD-10-PCS; principal; 2022-08-29 17:45)
PROC: 02HV33Z Insertion of Infusion Device into Superior Vena Cava, Percutaneous Approach (ICD-10-PCS; 2022-08-31)
DX: M00.011 Staphylococcal arthritis, right shoulder (principal); I10 Essential (primary) hypertension; F32.A Depression, unspecified; F41.9 Anxiety disorder, unspecified; M25.511 Pain in right shoulder; L03.113 Cellulitis of right upper limb; B95.61 Methicillin susceptible Staphylococcus aureus infection as the cause of diseases classified elsewhere; L02.413 Cutaneous abscess of right upper limb; G47.00 Insomnia, unspecified; K59.00 Constipation, unspecified; Z79.899 Other long term (current) drug therapy

== ENCOUNTER → 2022-09-05 | Outpatient (REF) | payer OTHER ==
[~2022-09-05] MED LIST changes: +AMLO1TAB24 PO; +AMOX875T2 PO; +BUPR-71 PO; +CEPH500C PO; +IBUP200C90 PO; +MIRA1POW3 PO; +OXYC1TAB23 PO; +SENN-52 PO; +TRAM50TA2 PO
[2022-09-05 15:16] LABS: HEMOGLOBIN 10.5 g/dl (13.5-17.5); MEAN CORPUSCULAR HEMOGLOBIN 31.2 pg (27.0-33.0); MEAN CORPUSCULAR HGB CONC 32.8 g/dl (32.0-36.5); PLATELET COUNT, AUTOMATED 607 10^3/uL (150-450); RED BLOOD COUNT 3.37 10^6/uL (4.30-6.10); WHITE BLOOD COUNT 13.7 10^3/uL (4.0-10.0)
[2022-09-05 15:41] LABS: CPK CREATINE PHOSPHOKINASE 65 U/L (46-171)
[2022-09-05 15:45] LABS: ALBUMIN 3.4 G/DL (3.2-5.2); ALKALINE PHOSPHATASE 111 U/L (46-116); ALT/SGPT 48 U/L (7.0-40); AST/SGOT 18 U/L (<34); BILIRUBIN,TOTAL 0.4 MG/DL (0.3-1.2); BLOOD UREA NITROGEN 16 MG/DL (9-23); CALCIUM LEVEL 8.7 MG/DL (8.5-10.1); CARBON DIOXIDE LEVEL 28 MMOL/L (20-31); CHLORIDE LEVEL 101 MMOL/L (98-107); CREATININE FOR GFR 0.75 MG/DL (0.70-1.30); GLOMERULAR FILTRATION RATE > 60.0 (>60); GLUCOSE, FASTING 80 MG/DL (60-100); POTASSIUM SERUM 4.3 MMOL/L (3.5-5.1); SODIUM LEVEL 136 MMOL/L (136-145); TOTAL PROTEIN 6.9 G/DL (5.7-8.2)
[2022-09-05 17:58] LABS: ATYPICAL LYMPH 2 % (0-5); BASOPHILS 1 % (0-1); EOSINOPHILS 1 % (0-3); LYMPHOCYTES 18 % (16-44); METAMYELOCYTES 2 % (0-0); MONOCYTES 4 % (0-5); MYELOCYTES 1 % (0-0); NEUTROPHILS 69 % (28-66); PLATELET ESTIMATE INCREASED (NORMAL)
[2022-09-05 18:14] LABS: ERYTHROCYTE SEDIMENTATION RATE 30 mm/hr (0-15)
== END ==
LOC: M SHH 14:48
PROVIDERS: ATTEND Internal Medicine Infectious Disease
DX: M00.811 Arthritis due to other bacteria, right shoulder (principal)

== ENCOUNTER → 2022-09-12 | Outpatient (REF) | payer OTHER ==
[2022-09-12 12:50] LABS: BASO # 0.1 10^3/uL (0.0-0.2); BASO % 0.8 % (0.0-1.0); EOS # 0.1 10^3/uL (0.0-0.5); EOS % 0.8 % (0.0-3.0); HEMATOCRIT 32.3 % (42.0-52.0); HEMOGLOBIN 10.7 g/dl (13.5-17.5); LYMPH # 2.1 10^3/uL (1.5-5.0); LYMPH % 33.3 % (24.0-44.0); MEAN CORPUSCULAR HEMOGLOBIN 31.2 pg (27.0-33.0); MEAN CORPUSCULAR HGB CONC 33.1 g/dl (32.0-36.5); MEAN CORPUSCULAR VOLUME 94.2 fl (80.0-96.0); MONO # 0.4 10^3/uL (0.0-0.8); MONO % 6.3 % (2.0-8.0); NEUTROPHILS # 3.6 10^3/uL (1.5-8.5); NEUTROPHILS % 58.2 % (36.0-66.0); PLATELET COUNT, AUTOMATED 429 10^3/uL (150-450); RED BLOOD COUNT 3.43 10^6/uL (4.30-6.10); WHITE BLOOD COUNT 6.2 10^3/uL (4.0-10.0)
[2022-09-12 13:07] LABS: ERYTHROCYTE SEDIMENTATION RATE 6 mm/hr (0-15)
[2022-09-12 13:12] LABS: C REACTIVE PROTEIN QUANTITATIV < 0.40 MG/DL (<1.0)
[2022-09-12 13:14] LABS: CPK CREATINE PHOSPHOKINASE 71 U/L (46-171)
[2022-09-12 13:42] LABS: ALBUMIN 3.5 G/DL (3.2-5.2); ALKALINE PHOSPHATASE 77 U/L (46-116); ALT/SGPT 29 U/L (7.0-40); AST/SGOT 17 U/L (<34); BILIRUBIN,TOTAL 0.4 MG/DL (0.3-1.2); BLOOD UREA NITROGEN 11 MG/DL (9-23); CALCIUM LEVEL 8.5 MG/DL (8.5-10.1); CARBON DIOXIDE LEVEL 29 MMOL/L (20-31); CHLORIDE LEVEL 102 MMOL/L (98-107); CREATININE FOR GFR 0.69 MG/DL (0.70-1.30); GLOMERULAR FILTRATION RATE > 60.0 (>60); GLUCOSE, FASTING 85 MG/DL (60-100); SODIUM LEVEL 139 MMOL/L (136-145)
[2022-09-12 15:48] LABS: TOTAL PROTEIN 6.5 G/DL (5.7-8.2)
== END ==
LOC: M SHH 12:34
PROVIDERS: ATTEND Internal Medicine Infectious Disease
DX: M00.811 Arthritis due to other bacteria, right shoulder (principal)

== ENCOUNTER → 2022-09-19 | Outpatient (REF) | payer OTHER ==
[2022-09-19 14:29] LABS: BASO % 0.5 % (0.0-1.0); EOS # 0.1 10^3/uL (0.0-0.5); EOS % 1.3 % (0.0-3.0); HEMATOCRIT 38.1 % (42.0-52.0); HEMOGLOBIN 12.4 g/dl (13.5-17.5); LYMPH # 2.1 10^3/uL (1.5-5.0); LYMPH % 34.5 % (24.0-44.0); MEAN CORPUSCULAR HEMOGLOBIN 31.2 pg (27.0-33.0); MEAN CORPUSCULAR HGB CONC 32.5 g/dl (32.0-36.5); MEAN CORPUSCULAR VOLUME 95.7 fl (80.0-96.0); MONO # 0.5 10^3/uL (0.0-0.8); MONO % 7.9 % (2.0-8.0); NEUTROPHILS # 3.3 10^3/uL (1.5-8.5); NEUTROPHILS % 55.3 % (36.0-66.0); PLATELET COUNT, AUTOMATED 329 10^3/uL (150-450); RED BLOOD COUNT 3.98 10^6/uL (4.30-6.10)
[2022-09-19 14:45] LABS: C REACTIVE PROTEIN QUANTITATIV < 0.40 MG/DL (<1.0)
[2022-09-19 14:46] LABS: CPK CREATINE PHOSPHOKINASE 89 U/L (46-171)
[2022-09-19 14:50] LABS: ALBUMIN 4.2 G/DL (3.2-5.2); ALKALINE PHOSPHATASE 70 U/L (46-116); ALT/SGPT 22 U/L (7.0-40); AST/SGOT 18 U/L (<34); BILIRUBIN,TOTAL 0.8 MG/DL (0.3-1.2); BLOOD UREA NITROGEN 9 MG/DL (9-23); CALCIUM LEVEL 9.4 MG/DL (8.5-10.1); CARBON DIOXIDE LEVEL 30 MMOL/L (20-31); CHLORIDE LEVEL 102 MMOL/L (98-107); CREATININE FOR GFR 0.77 MG/DL (0.70-1.30); GLOMERULAR FILTRATION RATE > 60.0 (>60); GLUCOSE, FASTING 83 MG/DL (60-100); POTASSIUM SERUM 4.3 MMOL/L (3.5-5.1); SODIUM LEVEL 137 MMOL/L (136-145); TOTAL PROTEIN 7.1 G/DL (5.7-8.2)
[2022-09-19 15:04] LABS: ERYTHROCYTE SEDIMENTATION RATE 11 mm/hr (0-15)
== END ==
LOC: M SHH 13:37
PROVIDERS: ATTEND Internal Medicine
DX: M19.011 Primary osteoarthritis, right shoulder (principal)

== ENCOUNTER → 2023-04-07 | Outpatient (CLI) | payer OTHER ==
[~2023-04-07] MED LIST changes: +BACTDSTA PO; +DOXY100C3 PO; -GABA-283; +GABA-284; +GABA-284 PO; +PROBCAP14 PO; +PROHANCE 279.3MG/ML 15ML VIAL As Ordered ONE; +PROHANCE 279.3MG/ML 5ML VIAL As Ordered ONE; +med rec comment
== END ==
LOC: M RAD 13:42
PROVIDERS: ATTEND Student in an Organized Health Care Education/Training Program
DX: M25.511 Pain in right shoulder (principal)

== ENCOUNTER 2023-05-03 10:43 | Outpatient (RCR) | payer OTHER | END 2023-05-09 | LOC: M PT 10:43 | PROVIDERS: ATTEND Student in an Organized Health Care Education/Training Program | DX: M25.511 Pain in right shoulder (principal) ==

== ENCOUNTER → 2023-05-03 | Outpatient (CLI) | payer OTHER ==
[~2023-05-03] MED LIST changes: -PROHANCE 279.3MG/ML 15ML VIAL As Ordered ONE; -PROHANCE 279.3MG/ML 5ML VIAL As Ordered ONE
[2023-05-03 14:07] LABS: BASO # 0.1 10^3/uL (0.0-0.2); BASO % 0.8 % (0.0-1.0); EOS # 0.1 10^3/uL (0.0-0.5); EOS % 0.9 % (0.0-3.0); HEMATOCRIT 44.7 % (42.0-52.0); HEMOGLOBIN 14.9 g/dl (13.5-17.5); LYMPH # 2.5 10^3/uL (1.5-5.0); MEAN CORPUSCULAR HEMOGLOBIN 30.8 pg (27.0-33.0); MEAN CORPUSCULAR HGB CONC 33.3 g/dl (32.0-36.5); MEAN CORPUSCULAR VOLUME 92.5 fl (80.0-96.0); MONO # 0.5 10^3/uL (0.0-0.8); NEUTROPHILS # 3.5 10^3/uL (1.5-8.5); PLATELET COUNT, AUTOMATED 281 10^3/uL (150-450); RED BLOOD COUNT 4.83 10^6/uL (4.30-6.10); WHITE BLOOD COUNT 6.6 10^3/uL (4.0-10.0)
[2023-05-03 14:45] LABS: ERYTHROCYTE SEDIMENTATION RATE < 1 mm/hr (0-15)
== END ==
LOC: M PLALAB 12:05
PROVIDERS: ATTEND Physician Assistant
DX: M25.511 Pain in right shoulder (principal)

== ENCOUNTER 2023-06-07 10:44 | Outpatient (RCR) | payer OTHER ==
[~2023-06-07 10:44] MED LIST changes: -LIDOCAINE 1% MDV 20ML VIAL As Ordered ONE
== END 2023-06-08 ==
LOC: M PT 10:44
PROVIDERS: ATTEND Student in an Organized Health Care Education/Training Program
DX: M25.511 Pain in right shoulder (principal)

== ENCOUNTER → 2023-06-07 | Outpatient (CLI) | payer OTHER ==
[~2023-06-07] MED LIST changes: +LIDOCAINE 1% MDV 20ML VIAL As Ordered ONE
[2023-06-07 13:00] VITALS: BP 157/94; TEMP 97.5; O2SAT 97
== END ==
LOC: M IRPRO 12:56
PROVIDERS: ATTEND Orthopaedic Surgery Hand Surgery
DX: M25.511 Pain in right shoulder (principal)

== ENCOUNTER 2023-06-28 09:14 | Outpatient (RCR) | payer OTHER | END 2023-07-09 | LOC: M PT 09:14 | PROVIDERS: ATTEND Student in an Organized Health Care Education/Training Program | DX: M25.511 Pain in right shoulder (principal) ==

== ENCOUNTER → 2024-02-28 | Outpatient (CLI) | payer OTHER ==
[~2024-02-28] MED LIST changes: +BUPR-597; -BUPR300T92; -MIRA1POW3 PO; +MIRA33506 PO
[2024-02-28 15:18] LABS: APPEARANCE, URINE CLEAR (CLEAR); BACTERIA, URINE AUTO NEGATIVE (NEGATIVE); BILIRUBIN, URINE AUTO NEGATIVE (NEGATIVE); BLOOD, URINE BLOOD NEGATIVE (NEGATIVE); COLOR, URINE STRAW (YELLOW); GLUCOSE, URINE (UA) AUTO NEGATIVE (NEGATIVE); KETONE, URINE AUTO NEGATIVE (NEGATIVE); LEUKOCYTE ESTERASE, URINE AUTO NEGATIVE (NEGATIVE); MUCUS, URINE SMALL (NEGATIVE); NITRITE, URINE AUTO NEGATIVE (NEGATIVE); PROTEIN, URINE AUTO NEGATIVE (NEGATIVE); RBC, URINE AUTO 0 /HPF (0-3); SPECIFIC GRAVITY URINE AUTO 1.008 (1.002-1.035); SQUAMOUS EPITHELIAL CELL UR AU 0 /HPF (0-6); UROBILINOGEN, URINE AUTO 0.2 mg/dL (0.0-2.0); WBC, URINE AUTO 1 /HPF (0-3)
[2024-02-28 15:32] LABS: BASO # 0.1 10^3/uL (0.0-0.2); BASO % 0.6 % (0.0-1.0); EOS # 0.1 10^3/uL (0.0-0.5); EOS % 1.3 % (0.0-3.0); HEMATOCRIT 42.8 % (42.0-52.0); HEMOGLOBIN 14.5 g/dl (13.5-17.5); LYMPH # 2.8 10^3/uL (1.5-5.0); LYMPH % 33.6 % (24.0-44.0); MEAN CORPUSCULAR HEMOGLOBIN 31.4 pg (27.0-33.0); MEAN CORPUSCULAR HGB CONC 33.9 g/dl (32.0-36.5); MEAN CORPUSCULAR VOLUME 92.6 fl (80.0-96.0); MONO # 0.6 10^3/uL (0.0-0.8); MONO % 6.9 % (2.0-8.0); NEUTROPHILS # 4.7 10^3/uL (1.5-8.5); PLATELET COUNT, AUTOMATED 281 10^3/uL (150-450); RED BLOOD COUNT 4.62 10^6/uL (4.30-6.10); WHITE BLOOD COUNT 8.2 10^3/uL (4.0-10.0)
[2024-02-28 16:01] LABS: TOTAL IRON BINDING CAPACITY 342 UG/DL (250-425)
[2024-02-28 16:02] LABS: BLOOD UREA NITROGEN 17 MG/DL (9-23); CALCIUM LEVEL 9.4 MG/DL (8.5-10.1); CARBON DIOXIDE LEVEL 30 MMOL/L (20-31); CHLORIDE LEVEL 106 MMOL/L (98-107); CREATININE FOR GFR 0.99 MG/DL (0.70-1.30); GLOMERULAR FILTRATION RATE > 60.0 (>60); GLUCOSE, FASTING 89 MG/DL (60-100); IRON (FE) 107 UG/DL (65-175); PERCENT SATURATION 31.3 % (19.7-50.0); POTASSIUM SERUM 4.3 MMOL/L (3.5-5.1); SODIUM LEVEL 139 MMOL/L (136-145)
[2024-02-28 16:07] LABS: FERRITIN 99.7 NG/ML (10.5-307.3); THYROID STIMULATING HORMONE 0.648 uIU/ML (0.55-4.78)
[2024-02-28 16:11] LABS: FREE T4 1.36 NG/DL (0.89-1.76)
[2024-02-28 16:14] LABS: HEMOGLOBIN A1c 5.1 % (4.0-6.0)
== END ==
LOC: M PLALAB 11:45
PROVIDERS: ATTEND Student in an Organized Health Care Education/Training Program
DX: R53.83 Other fatigue (principal); R35.0 Frequency of micturition